=== PATIENT | female | born 1960 | race Caucasian/White ===

== ENCOUNTER 2016-08-11 19:50 | Emergency (ER) | payer OTHER ==
[~2016-08-11] VITALS: Ht 149.9 cm; Wt 67.7 kg
--- OUTSIDE RECORDS SUMMARY | 2016-08-11 19:54 | XMS REPORT | Continuity of Care Document ---
Author Author [facility] Address Unknown Phone Unavailable Allergies Medications Problems Date Dx Coded Attending Type Code Diagnosis Diagnosed By 05/13/2015 Ot 793.80 05/13/2015 Ot V76.12 05/13/2015 Ot 611.72 05/13/2015 GARY CORDERO PA-C Ot 610.0 05/13/2015 GARY CORDERO-C Ot 611.9 05/15/2015 Ot 793.80 05/15/2015 Ot V76.12 05/15/2015 Ot 611.72 05/15/2015 GARY CORDERO PA-C Ot 610.0 05/15/2015 GARY CORDEROC Ot 611.9 05/20/2015 Ot 793.80 05/20/2015 Ot V76.12 05/20/2015 Ot 611.72 05/20/2015 GARY CORDERO PA-C Ot 610.0 05/20/2015 GARY CORDEROC Ot 611.9 06/08/2015 Ot 793.80 06/08/2015 Ot V76.12 06/08/2015 Ot 611.72 06/08/2015 GARY CORDEROC Ot 610.0 06/08/2015 GARY CORDERO-C Ot 611.9 12/30/2015 Ot 793.80 UNSPEC ABNORMAL MAMMOGRAM 12/30/2015 Ot V76.12 OTH SCREEN MAMMO-MALIGN NEOPLASM OF [place]ENIA 12/30/2015 Ot 611.72 LUMP OR MASS IN BREAST 12/30/2015 GARY CORDERO-C Ot 610.0 SOLITARY CYST OF BREAST 12/30/2015 GARY CORDEROC Ot 611.9 BREAST DISORDER NOS Procedures Results Encounters ACCT No. Visit Date/Time Discharge Status Pt. Type Provider Facility Loc./Unit Complaint [id number] 2013 14:42:00 2012 23:59:59 [facility] [place] F/U DIFFUSED DENSITY [id number] 07/01/2012 12:44:00 Document Registration [id number] 06/16/2012 15:37:00 Document Registration
--- OUTSIDE RECORDS SUMMARY | 2016-08-11 19:57 | XMS REPORT | Continuity of Care Document ---
Author Author [facility] Address Unknown Phone Unavailable Allergies Medications [...] 610.0 SOLITARY CYST OF BREAST 12/30/2015 GARY CORDEORC Ot 611.9 BREAST DISORDER NOS Procedures Results Encounters ACCT No. Visit Date/Time Discharge Status Pt. Type Provider Facility Loc./Unit Complaint [id number] 2013 14:42:00 2012 23:59:59 CLS [facility] RAD 6 MO F/U DIFFUSED DENSITY [id number] 07/01/2012 12:44:00 Document Registration [id number] 06/16/2012 15:37:00 Document Registration
[2016-08-11 19:58] VITALS: BP 148/85
[2016-08-11] MEDS ORDERED: LIDOCAINE 2% (XYLOCAINE) 20 ML VIAL INJ ONE (20:10)
[2016-08-11] MEDS ORDERED: BACITRACIN OINTMENT 0.9 GM PACKET TOP ONE (20:10)
[2016-08-11] MEDS ORDERED: LIDOCAINE 1% (XYLOCAINE) 20 ML VIAL ONE (20:14)
== END 2016-08-11 20:48 | disposition home or self-care (01) ==
LOC: ED 19:51
DX: S61.412A Laceration without foreign body of left hand, initial encounter (principal); W10.9XXA Fall (on) (from) unspecified stairs and steps, initial encounter; Y93.89 Activity, other specified; Y92.008 Other place in unspecified non-institutional (private) residence as the place of occurrence of the external cause
CPT/HCPCS: 12002; 99282; J2001